=== PATIENT | female | born 1955 | race Caucasian/White ===

== ENCOUNTER 2020-01-20 11:16 | Emergency (ER) | payer MEDICAID, SELFPAY ==
[~2020-01-20] VITALS: Ht 160 cm; Wt 63.8 kg
[2020-01-20 11:58] LABS: BASOPHILS # (AUTO) 0.16 x10^3/uL (0-0.1); BASOPHILS % (AUTO) 1 % (0-1); EOSINOPHILS # (AUTO) 0.04 x10^3/uL (0-0.4); EOSINOPHILS % (AUTO) 0 % (1-7); LYMPHOCYTES # (AUTO) 2.92 x10^3/uL (1-3.4); LYMPHOCYTES % (AUTO) 21 % (22-44); MD NO; MEAN CORPUSCULAR HEMOGLOBIN 30.7 pg (27.0-34.8); MEAN CORPUSCULAR HGB CONC 33.6 g/dL (32.4-35.8); MEAN CORPUSCULAR VOLUME 91.5 fL (80-100); MEAN PLATELET VOLUME 10.9 fL (7.4-10.4); MONOCYTES # (AUTO) 0.92 x10^3/uL (0.2-0.8); MONOCYTES % (AUTO) 7 % (2-9); NEUTROPHILS # (AUTO) 9.73 x10^3/uL (1.8-6.8); NEUTROPHILS % (AUTO) 71 % (42-75); PLATELET COUNT 330 x10^3/uL (130-400); RED BLOOD COUNT 5.63 x10^6/uL (3.82-5.3); RED CELL DISTRIBUTION WIDTH 14.7 % (9.6-15.2)
[2020-01-20] MEDS ORDERED: FAMOTIDINE 20 MG/2 ML IVPush ONE (12:00)
[2020-01-20] MEDS ORDERED: ONDANSETRON 2MG/ML, 2ML IVPush ONE (12:00)
[2020-01-20] MEDS ORDERED: SODIUM CHLORIDE FLUSH 10ML SYR IVF ONE (12:00)
[2020-01-20] MEDS ORDERED: SODIUM CHLORIDE 0.9% 1,000ML IVBOLUS ONE (12:00)
[2020-01-20 12:07] LABS: ALANINE AMINOTRANSFERASE 28 U/L (12-78); ALBUMIN 4.5 g/dL (3.4-5.0); ANION GAP 10 mmol/L (5-15); CALCIUM 10.2 mg/dL (8.5-10.1); CHLORIDE 98 mmol/L (98-107); CREATININE 0.99 mg/dL (0.55-1.02)
--- NOTE | 2020-01-20 12:09 | NUR ---
PT CAME TO ER BY POV. PT C/O HEADACHE, N/V, AND VOMITING X 3 DAYS. PT STATES SHE IS "DEHYRATED" RIGHT NOW.
[2020-01-20 12:10] LABS: ALKALINE PHOSPHATASE 119 U/L (45-117); BILIRUBIN,TOTAL 0.8 mg/dL (0.2-1.0); TOTAL PROTEIN 8.7 g/dL (6.4-8.2)
[2020-01-20] MEDS ORDERED: ONDANSETRON 2MG/ML, 2ML ONE (12:14)
[2020-01-20] MEDS ORDERED: FAMOTIDINE 20 MG/2 ML ONE (12:14)
[2020-01-20 12:46] LABS: TROPONIN I < 0.015 ng/mL (0.000-0.045)
--- NOTE | 2020-01-20 13:14 | NUR ---
PT STATES SHE FEELS BETTER AFTER MED ADMINISTRATION. NAUSAEA STILL PRESENT BUT TOLERABLE. PT LEAVING TO CT.
[2020-01-20 13:45] LABS: MICROSCOPIC INDICATED
[2020-01-20 14:29] VITALS: BP 155/81
--- NOTE | 2020-01-20 14:36 | NUR ---
IV DC'D WITH CATH TIP INTACT.
--- NOTE | 2020-01-20 14:37 | NUR ---
PT AMBULATED TO DC DESK, STEADY GAIT.
[2020-01-20] MEDS ORDERED: OMNIPAQUE 350 MG/ML, 100ML BOTTLE ONE (17:00)
== END 2020-01-20 14:39 | disposition home or self-care (01) ==
LOC: ED 12:41
DX: N30.01 Acute cystitis with hematuria (principal); K80.20 Calculus of gallbladder without cholecystitis without obstruction; R11.2 Nausea with vomiting, unspecified; I24.9 Acute ischemic heart disease, unspecified; R94.31 Abnormal electrocardiogram [ECG] [EKG]
CPT/HCPCS: 36415; 74177; 80053; 81001; 83690; 84484; 85025; 87086; 93005; 96374; 96375; 99285; J2405; J3490; Q9967